=== PATIENT | female | born 1940 | race African-American/Black ===

== ENCOUNTER 2018-06-01 08:36 | Emergency (ER) | payer MEDICARE, MEDICAID | END 2018-06-01 08:59 | disposition home or self-care (01) | LOC: ERS 08:36 | DX: H72.92 Unspecified perforation of tympanic membrane, left ear (principal) | CPT/HCPCS: 99282 ==

== ENCOUNTER 2022-10-11 13:36 | Emergency (ER) | payer OTHER, MEDICARE, MEDICAID ==
[2022-10-11] MEDS ORDERED: Bacitracin 1 PK ONE (14:14)
== END 2022-10-11 15:10 | disposition home or self-care (01) ==
LOC: ERS 13:36
DX: S09.90XA Unspecified injury of head, initial encounter (principal); S00.12XA Contusion of left eyelid and periocular area, initial encounter; I10 Essential (primary) hypertension; Z87.891 Personal history of nicotine dependence; V89.2XXA Person injured in unspecified motor-vehicle accident, traffic, initial encounter
CPT/HCPCS: 70450